=== PATIENT | male | born 1955 | race African-American/Black ===

== ENCOUNTER 2017-05-15 11:13 | Emergency (ER) | payer OTHER ==
[~2017-05-15] VITALS: Ht 182.9 cm; Wt 112.0 kg
[~2017-05-15 11:13] MED LIST: AMOX1TAB61 PO; BACL10TA PO; HYDR-2762 PO; HYDR12.53 PO
[2017-05-15 11:37] VITALS: BP 124/78
--- NOTE | 2017-05-15 12:13 | RAD ---
Pelvis with right hip, 3 views, 05/15/2017: History: Injury, pain No fracture or dislocation is identified. There is mild spurring at both hip joints. There are moderate degenerative changes in the lower lumbar spine. IMPRESSION: No acute bony abnormality is detected.
--- NOTE | 2017-05-15 12:22 | PHYS DOC ---
Past Medical History Past Medical History: Arthritis, Hypertension Past Surgical History: Other Additional Past Surgical Histo: right wrist fusion Alcohol Use: Occasionally Drug Use: None Adult General Chief Complaint Chief Complaint: MECHANICAL FALL HPI HPI Patient is a 61 year old male presents the ED complaining of left leg injury times one day. Patient states he was walking and slipped on wet floor. Discussed pain as sharp. Rates pain as 7 out of 10. Pain is worse with flexion. Patient able to ambulate without assistance. Denies head/neck injury, LOC, vision changes, Chest pain, shortness of breath, symptoms prior to fall, weakness, dizziness, nausea/vomiting. Review of Systems Review of Systems Constitutional: Denies fever or chills [] Eyes: Denies change in visual acuity, redness, or eye pain [] HENT: Denies nasal congestion or sore throat [] Respiratory: Denies cough or shortness of breath [] Cardiovascular: No additional information not addressed in HPI [] GI: Denies abdominal pain, nausea, vomiting, bloody stools or diarrhea [] : Denies dysuria or hematuria [] Musculoskeletal: Denies back pain. Complains of right hip and leg pain.[] Integument: Denies rash or skin lesions [] Neurologic: Denies headache, focal weakness or sensory changes [] Endocrine: Denies polyuria or polydipsia [] Allergies Allergies Allergies Coded Allergies Type Severity Reaction Last Updated Verified No Known Drug Allergies 12/20/16 No Physical Exam Physical Exam Constitutional: Well developed, well nourished, no acute distress, non-toxic appearance. [] HENT: Normocephalic, atraumatic, bilateral external ears normal, oropharynx moist, no oral exudates, nose normal. [] Eyes: PERRLA, EOMI, conjunctiva normal, no discharge. [] Neck: Normal range of motion, no tenderness, supple, no stridor. [] Cardiovascular:Heart rate regular rhythm, no murmur [] Lungs & Thorax: Bilateral breath sounds clear to auscultation [] Abdomen: Bowel sounds normal, soft, no tenderness, no masses, no pulsatile masses. [] Skin: Warm, dry, no erythema, no rash. [] Back: No tenderness, no CVA tenderness. [] Extremities: MILD RIGHT HIP AND THIGH TENDERNESS. No overlying skin changes, no cyanosis, no clubbing, ROM intact, no edema. [] Neurologic: Alert and oriented X 3, normal motor function, normal sensory function, no focal deficits noted. [] Psychologic: Affect normal, judgement normal, mood normal. [] Current Patient Data Vital Signs Vital Signs Date Time Temp Pulse Resp B/P (MAP) Pulse Ox O2 Delivery O2 Flow Rate FiO2 05/15/17 11:37 97.7 76 20 97 Room Air 97.7 EKG EKG [] Radiology/Procedures Radiology/Procedures PROCEDURE: HIP RIGHT 2V WITH PELVIS Pelvis with right hip, 3 views, 05/15/2017: History: Injury, pain No fracture or dislocation is identified. There is mild spurring at both hip joints. There are moderate degenerative changes in the lower lumbar spine. IMPRESSION: No acute bony abnormality is detected.[] Course & Med Decision Making Course & Med Decision Making Pertinent Labs and Imaging studies reviewed. (See chart for details) []Discussed imaging with patient. Patient's pain improved. Vital stable, no acute distress. Patient able to ambulate without pain. Discussed follow-up with orthopedics this week. Discussed reasons to return to the ED. Patient understands and agrees with plan. Dragon Disclaimer Dragon Disclaimer This electronic medical record was generated, in whole or in part, using a voice recognition dictation system. Departure Departure Impression: Primary Impression: Hip injury Additional Impression: Muscle strain Disposition: 01 HOME, SELF-CARE Condition: STABLE Referrals: DUSTIN LAGUNAS MD (PCP) Patient Instructions: Hip Injury, Muscle Strain Scripts Hydrocodone/Apap 5-325 (NORCO 5-325 TABLET) 1 Each Tablet 1 TAB PO TID, #8 TAB Prov: YARIEL VILLANUEVA 05/15/17 Cyclobenzaprine Hcl (CYCLOBENZAPRINE HCL) 5 Mg Tablet 5 MG PO TID, #10 TAB Prov: YARIEL VILLANUEVA 05/15/17 Problem Qualifiers YARIEL VILLANUEVA May 15, 2017 12:22
[2017-05-15] MEDS ORDERED: CYCL5TAB PO (12:28)
[2017-05-15] MEDS ORDERED: HYDR-971 PO (12:28)
== END 2017-05-15 12:45 | disposition home or self-care (01) ==
LOC: ER 11:13
DX: S79.912A Unspecified injury of left hip, initial encounter (principal); I10 Essential (primary) hypertension; M19.90 Unspecified osteoarthritis, unspecified site; W01.0XXA Fall on same level from slipping, tripping and stumbling without subsequent striking against object, initial encounter; Y93.01 Activity, walking, marching and hiking; Y92.89 Other specified places as the place of occurrence of the external cause; Y99.8 Other external cause status
CPT/HCPCS: 73502; 99284